=== PATIENT | female | born 1950 | race Caucasian/White ===

== ENCOUNTER 2020-11-06 15:14 | Emergency (ER) | payer MEDICAID, MEDICARE, OTHER ==
[~2020-11-06] VITALS: Ht 167.6 cm; Wt 68.2 kg
[~2020-11-06 15:14] MED LIST: GABA-338 PO; LANTUS SQ; LEVA15HF4 IH; ZES10T PO
[2020-11-06] MEDS ORDERED: normal saline 1000ML IV soln IV ONE (15:35)
[2020-11-06] MEDS ORDERED: CefTRIAXone 2gm/D5W 50ml BAG 50 ML IV ONE (15:35)
[2020-11-06] MEDS ORDERED: acetaminophen 325mg tablet PO ONE (15:50)
--- NOTE | 2020-11-06 16:05 | NUR ---
javy (son) [phone] called and said he would be the ride when pt is ready to go home
[2020-11-06 16:08] LABS: ALANINE AMINOTRANSFERASE 34 U/L (12-78); ALBUMIN/GLOBULIN RATIO 0.6 (1.1-1.5); ALKALINE PHOSPHATASE 128 IU/L (46-116); ANION GAP 13 (8-16); ASPARTATE AMINO TRANSFERASE 40 U/L (10-37); BILIRUBIN,TOTAL 1.5 MG/DL (0.1-1.0); BLOOD UREA NITROGEN 12 MG/DL (7-18); BUN/CREATININE RATIO 16.4 (6.6-38.0); CHLORIDE 93 MMOL/L (99-107); CREATININE 0.73 MG/DL (0.40-0.90); GLUCOSE 322 MG/DL (70-104); MAGNESIUM 1.2 MG/DL (1.5-2.4); POTASSIUM 3.5 MMOL/L (3.5-5.1); SODIUM 130 MMOL/L (135-145); TOTAL CARBON DIOXIDE 24.3 MMOL/L (24-32); TOTAL PROTEIN 8.2 G/DL (6.4-8.2); eGFR 79 ML/MIN
[2020-11-06 16:31] LABS: CLARITY,URINE SLIGHTLY CLOUDY (Clear); COLOR,URINE YELLOW (Yellow); GLUCOSE, URINE >=1000 mg/dl (Neg); KETONES,URINE 15 mg/dl (Neg); LEUKOCYTE ESTERASE ,URINE NEGATIVE (Neg); NITRITES, URINE NEGATIVE (Neg); OCCULT BLOOD,URINE NEGATIVE (Neg); PH,URINE 5.5 (4.8-8.0); PROTEIN,URINE NEGATIVE (Neg); UA COLLECTION TYPE STRAIGHT CATH; UROBILINOGEN,URINE 0.2 E.U/dL (0.2-1.0)
[2020-11-06 16:38] LABS: FINE GRANULAR CAST 0-3 /LPF (NEGATIVE); MUCUS STRANDS FEW /LPF (Neg); SQUAMOUS EPITHELIAL CELL,UR FEW /LPF (FEW)
[2020-11-06 16:39] LABS: BACTERIA,URINE FEW /HPF (Neg); RBC,URINE 0-2 /HPF (0-2); WBC,URINE 0-4 /HPF (0-4)
[2020-11-06 16:46] LABS: BASOPHILS % (AUTO) 0.1 % (0-1); EOSINOPHILS % (AUTO) 0.4 % (0-6); HEMATOCRIT 32.6 % (35.0-45.0); HEMOGLOBIN 10.8 g/dl (12.0-16.0); LYMPHOCYTES # (AUTO) 0.6 X10'3 (1.1-4.8); LYMPHOCYTES % (AUTO) 11.4 % (21-51); MEAN CORPUSCULAR HEMOGLOBIN 28.4 PG (27.0-31.0); MONOCYTES # (AUTO) 0.3 X10'3 (0-0.9); MONOCYTES % (AUTO) 6.7 % (2-12); NEUTROPHILS % (AUTO) 81.4 % (42-75); PLATELET COUNT 59 X10'3 (140-440); RED BLOOD COUNT 3.79 X10'6 (4.20-5.60); WHITE BLOOD COUNT 4.9 X10'3 (4.5-11.0)
[2020-11-06 19:45] VITALS: BP 112/50
== END 2020-11-06 20:21 | disposition home or self-care (01) ==
LOC: ER 15:17
DX: E11.65 Type 2 diabetes mellitus with hyperglycemia (principal); R53.1 Weakness; R50.9 Fever, unspecified; G89.29 Other chronic pain; I10 Essential (primary) hypertension; M19.90 Unspecified osteoarthritis, unspecified site; Z98.51 Tubal ligation status; Z72.89 Other problems related to lifestyle; Z56.0 Unemployment, unspecified; Z59.0 Homelessness; Z79.4 Long term (current) use of insulin; Z79.899 Other long term (current) drug therapy
CPT/HCPCS: 36415; 71045; 80053; 81001; 82948; 83605; 83735; 84145; 85025; 87040; 93005; 96361; 96365; 99285; J0696; J7030

== ENCOUNTER 2021-08-27 14:08 | Emergency (ER) | payer OTHER, MEDICAID ==
[~2021-08-27] VITALS: Ht 167.6 cm; Wt 80.7 kg
[2021-08-27 14:34] LABS: BASOPHILS % (AUTO) 0.3 % (0-1); EOSINOPHILS % (AUTO) 0.9 % (0-6); HEMATOCRIT 25.4 % (35.0-45.0); HEMOGLOBIN 8.1 g/dl (12.0-16.0); LYMPHOCYTES # (AUTO) 0.8 X10'3 (1.1-4.8); LYMPHOCYTES % (AUTO) 25.4 % (21-51); MEAN CORPUSCULAR HEMOGLOBIN 22.9 PG (27.0-31.0); MEAN CORPUSCULAR HGB CONC 31.7 g/dL (33.0-36.5); MEAN CORPUSCULAR VOLUME 72.2 FL (78-98); MEAN PLATELET VOLUME 8.6 FL (7.4-10.4); MONOCYTES # (AUTO) 0.4 X10'3 (0-0.9); MONOCYTES % (AUTO) 12.9 % (2-12); NEUTROPHILS # (AUTO) 1.9 X10'3 (1.8-7.7); NEUTROPHILS % (AUTO) 60.5 % (42-75); PLATELET COUNT 170 X10'3 (140-440); RED BLOOD COUNT 3.52 X10'6 (4.20-5.60); RED CELL DISTRIBUTION WIDTH 23.7 % (11.5-14.5); WHITE BLOOD COUNT 3.1 X10'3 (4.5-11.0)
[2021-08-27 14:48] LABS: ALANINE AMINOTRANSFERASE 22 U/L (12-78); ALBUMIN 2.3 G/DL (3.4-5.0); ALBUMIN/GLOBULIN RATIO 0.4 (1.1-1.5); ALKALINE PHOSPHATASE 145 IU/L (46-116); AMYLASE 76 U/L (25-115); ANION GAP 8 (8-16); ASPARTATE AMINO TRANSFERASE 27 U/L (10-37); BILIRUBIN,TOTAL 0.5 MG/DL (0.1-1.0); BLOOD UREA NITROGEN 16 MG/DL (7-18); BUN/CREATININE RATIO 21.1 (6.6-38.0); CALCIUM 7.8 MG/DL (8.5-10.1); CHLORIDE 105 MMOL/L (99-107); CREATININE 0.76 MG/DL (0.40-0.90); GLUCOSE 200 MG/DL (70-104); LIPASE 302 U/L (73-393); POTASSIUM 3.7 MMOL/L (3.5-5.1); SODIUM 135 MMOL/L (135-145); TOTAL CARBON DIOXIDE 22.4 MMOL/L (24-32); TOTAL PROTEIN 7.9 G/DL (6.4-8.2); eGFR 75 ML/MIN
[2021-08-27 15:04] LABS: ANISOCYTOSIS 3+; PLATELET ESTIMATE NORMAL
[2021-08-27 15:05] LABS: ELLIPTOCYTES FEW; HYPOCHROMASIA 2+; MICROCYTOSIS 1+; POLYCHROMASIA FEW; SCHISTOCYTES FEW
[2021-08-27] MEDS ORDERED: LIDOcaine 1% W/epiNEPHrine 1:100,000 20ml vial SQ ONE (21:05)
[2021-08-27 22:02] VITALS: BP 144/85
== END 2021-08-27 22:05 | disposition home or self-care (01) ==
LOC: ER 14:09
DX: K70.31 Alcoholic cirrhosis of liver with ascites (principal); Z79.4 Long term (current) use of insulin; Z79.899 Other long term (current) drug therapy; I10 Essential (primary) hypertension; E11.9 Type 2 diabetes mellitus without complications; M19.90 Unspecified osteoarthritis, unspecified site; Z98.51 Tubal ligation status; Z72.89 Other problems related to lifestyle; Z56.0 Unemployment, unspecified
CPT/HCPCS: 36415; 80053; 82150; 83690; 85008; 85025; 99283

== ENCOUNTER 2021-09-04 07:14 | Day surgery (SDC) | payer OTHER, MEDICAID ==
[2021-09-04] VITALS (8 sets, daily range): BP systolic 106–147; BP diastolic 49–77
[~2021-09-04] VITALS: Ht 167.6 cm; Wt 87.0 kg
[2021-09-04] MEDS ORDERED: LIDOcaine 1% 30ml preserv. free vial SQ STA (07:25)
[2021-09-04] MEDS ORDERED: albumin 25% 100mL bottle x 1 IV PRN (07:35)
[2021-09-04] MEDS ORDERED: METO-395 PO (07:42)
[2021-09-04] MEDS ORDERED: PANT40TA54 PO (07:42)
[2021-09-04] MEDS ORDERED: MAGN400T56 PO (07:42)
[2021-09-04] MEDS ORDERED: SPIR25TA5 PO (07:42)
[2021-09-04] MEDS ORDERED: POTA-82 PO (07:42)
[2021-09-04] MEDS ORDERED: INSU100V9 SQ (07:45)
[2021-09-04] MEDS ORDERED: HUM7525 SQ (07:47)
--- NOTE | 2021-09-04 09:20 | NUR ---
Small amount of blood returned on paracentesis cath, Dayana CHATTERJEE aware and at bedside. Cath DC intact. Dressing applied by Dayana Gerard RN
== END 2021-09-04 10:10 | disposition home or self-care (01) ==
LOC: SSTAY O 07:14
PROVIDERS: ATTEND Radiology Vascular & Interventional Radiology
DX: K70.31 Alcoholic cirrhosis of liver with ascites (principal); E11.9 Type 2 diabetes mellitus without complications; I10 Essential (primary) hypertension; J45.909 Unspecified asthma, uncomplicated; Z86.16 Personal history of COVID-19; Z86.19 Personal history of other infectious and parasitic diseases; Z79.4 Long term (current) use of insulin; Z79.899 Other long term (current) drug therapy; Z88.5 Allergy status to narcotic agent
CPT/HCPCS: 49083; J3490; P9047

== ENCOUNTER 2021-09-10 11:39 | Emergency (ER) | payer OTHER, MEDICAID ==
[~2021-09-10] VITALS: Ht 167.6 cm; Wt 61.8 kg
[~2021-09-10 11:39] MED LIST changes: -GABA-338 PO; +HUM7525 SQ; +INSU100V9 SQ; -LANTUS SQ; -LEVA15HF4 IH; +MAGN400T56 PO; +METO-395 PO; +PANT40TA54 PO; +POTA-82 PO; +SPIR25TA5 PO; -ZES10T PO
[2021-09-10 11:46] VITALS: BP 118/75
--- NOTE | 2021-09-10 13:21 | NUR ---
PT AMBULATORY TO BATHROOM WITH RN ASSIST.
[2021-09-10 14:44] LABS: HEMOGLOBIN 8.3 g/dl (12.0-16.0); LYMPHOCYTES # (AUTO) 0.9 X10'3 (1.1-4.8); MEAN PLATELET VOLUME 9.2 FL (7.4-10.4); WHITE BLOOD COUNT 2.9 X10'3 (4.5-11.0)
[2021-09-10 14:46] LABS: BASOPHILS % (AUTO) 0.2 % (0-1); EOSINOPHILS % (AUTO) 1.3 % (0-6); HEMATOCRIT 26.9 % (35.0-45.0); LYMPHOCYTES % (AUTO) 29.4 % (21-51); MONOCYTES # (AUTO) 0.3 X10'3 (0-0.9); MONOCYTES % (AUTO) 11.9 % (2-12); NEUTROPHILS # (AUTO) 1.7 X10'3 (1.8-7.7); NEUTROPHILS % (AUTO) 57.2 % (42-75); RED BLOOD COUNT 3.96 X10'6 (4.20-5.60); RED CELL DISTRIBUTION WIDTH 24.8 % (11.5-14.5)
[2021-09-10 15:05] LABS: PLATELET COUNT 101 X10'3 (140-440)
[2021-09-10 15:11] LABS: ANISOCYTOSIS 3+; HYPOCHROMASIA 2+; LARGE PLATELETS FEW; MICROCYTOSIS 2+; PLATELET ESTIMATE DECREASED; TOTAL CELLS COUNTED 100
[2021-09-10 15:12] LABS: ELLIPTOCYTES FEW
[2021-09-10 15:13] LABS: ALANINE AMINOTRANSFERASE 15 U/L (12-78); ALBUMIN 2.3 G/DL (3.4-5.0); ALBUMIN/GLOBULIN RATIO 0.4 (1.1-1.5); ALKALINE PHOSPHATASE 135 IU/L (46-116); ANION GAP 5 (8-16); ASPARTATE AMINO TRANSFERASE 17 U/L (10-37); BILIRUBIN,TOTAL 0.5 MG/DL (0.1-1.0); BLOOD UREA NITROGEN 14 MG/DL (7-18); BUN/CREATININE RATIO 22.2 (6.6-38.0); CALCIUM 7.8 MG/DL (8.5-10.1); CHLORIDE 102 MMOL/L (99-107); CREATININE 0.63 MG/DL (0.40-0.90); GLUCOSE 377 MG/DL (70-104); POTASSIUM 4.9 MMOL/L (3.5-5.1); SODIUM 132 MMOL/L (135-145); TOTAL CARBON DIOXIDE 24.6 MMOL/L (24-32); TOTAL PROTEIN 8.3 G/DL (6.4-8.2); eGFR > 90 ML/MIN
== END 2021-09-10 15:57 | disposition home or self-care (01) ==
LOC: ER 11:39
DX: D64.9 Anemia, unspecified (principal); K70.30 Alcoholic cirrhosis of liver without ascites; E11.65 Type 2 diabetes mellitus with hyperglycemia; I10 Essential (primary) hypertension; J45.909 Unspecified asthma, uncomplicated; M19.90 Unspecified osteoarthritis, unspecified site; F15.90 Other stimulant use, unspecified, uncomplicated; Z98.51 Tubal ligation status; Z86.19 Personal history of other infectious and parasitic diseases; Z72.89 Other problems related to lifestyle; Z56.0 Unemployment, unspecified; Z79.4 Long term (current) use of insulin; Z79.899 Other long term (current) drug therapy
CPT/HCPCS: 36415; 80053; 85007; 85025; 86885; 86900; 86901; 93005; 99284

== ENCOUNTER 2021-09-20 06:09 | Day surgery (SDC) | payer OTHER, MEDICAID ==
[2021-09-20] VITALS (13 sets, daily range): BP systolic 101–130; BP diastolic 43–69
[~2021-09-20] VITALS: Ht 167.6 cm; Wt 84.9 kg
[2021-09-20] MEDS ORDERED: LIDOcaine 1% 30ml preserv. free vial IJ STA (06:27)
[2021-09-20] MEDS ORDERED: ALBU8.5H17 INH (08:01)
[2021-09-20] MEDS ORDERED: MELO7.5T12 PO (08:01)
[2021-09-20] MEDS: albumin 25% 100mL bottle x 1 IV PRN ×2 (08:35→10:20)
== END 2021-09-20 10:40 | disposition home or self-care (01) ==
LOC: SSTAY O 06:09
PROVIDERS: ATTEND Radiology Vascular & Interventional Radiology
DX: K70.31 Alcoholic cirrhosis of liver with ascites (principal); E11.9 Type 2 diabetes mellitus without complications; J45.909 Unspecified asthma, uncomplicated; I10 Essential (primary) hypertension; Z86.16 Personal history of COVID-19; Z98.51 Tubal ligation status; F15.90 Other stimulant use, unspecified, uncomplicated; Z72.89 Other problems related to lifestyle; Z79.899 Other long term (current) drug therapy
CPT/HCPCS: 49083; J3490; P9047

== ENCOUNTER 2021-09-28 08:53 | Day surgery (SDC) | payer OTHER, MEDICAID ==
[2021-09-28] VITALS (13 sets, daily range): BP systolic 100–131; BP diastolic 51–69
[~2021-09-28] VITALS: Ht 167.6 cm; Wt 81.9 kg
[~2021-09-28 08:53] MED LIST changes: +ALBU8.5H17 INH; +LIDOcaine 1%/PF 5ML 10 MG/ML VIAL IJ ONE; -MAGN400T56 PO; +MELO7.5T12 PO
[2021-09-28] MEDS ORDERED: OXYC-658 PO (09:16)
[2021-09-28] MEDS: albumin 25% 100mL bottle x 1 IV PRN (12:13)
== END 2021-09-28 12:20 | disposition home or self-care (01) ==
LOC: SSTAY O 08:53
PROVIDERS: ATTEND Preventive Medicine Aerospace Medicine
DX: K70.31 Alcoholic cirrhosis of liver with ascites (principal); I10 Essential (primary) hypertension; J45.909 Unspecified asthma, uncomplicated; E11.9 Type 2 diabetes mellitus without complications; Z86.19 Personal history of other infectious and parasitic diseases; Z86.16 Personal history of COVID-19; Z98.51 Tubal ligation status; Z72.89 Other problems related to lifestyle; F15.90 Other stimulant use, unspecified, uncomplicated; Z79.899 Other long term (current) drug therapy
CPT/HCPCS: 49083; J3490; P9047

== ENCOUNTER 2021-10-08 08:13 | Day surgery (SDC) | payer OTHER, MEDICAID ==
[~2021-10-08] VITALS: Ht 167.6 cm; Wt 80.3 kg
[2021-10-08] VITALS (8 sets, daily range): BP systolic 118–146; BP diastolic 59–79
[~2021-10-08 08:13] MED LIST changes: -LIDOcaine 1%/PF 5ML 10 MG/ML VIAL IJ ONE; -MELO7.5T12 PO; +OXYC-658 PO; -POTA-82 PO
[2021-10-08] MEDS ORDERED: LIDOcaine 1%/PF 5ML 10 MG/ML VIAL IJ ONE (08:35)
[2021-10-08] MEDS: albumin 25% 100mL bottle x 1 IV PRN ×2 (10:32→10:34)
== END 2021-10-08 12:03 | disposition home or self-care (01) ==
LOC: SSTAY O 08:13
PROVIDERS: ATTEND Preventive Medicine Aerospace Medicine
DX: K70.31 Alcoholic cirrhosis of liver with ascites (principal); I10 Essential (primary) hypertension; E11.9 Type 2 diabetes mellitus without complications; J45.909 Unspecified asthma, uncomplicated; Z86.16 Personal history of COVID-19; Z86.19 Personal history of other infectious and parasitic diseases; Z98.51 Tubal ligation status; F15.90 Other stimulant use, unspecified, uncomplicated; Z72.89 Other problems related to lifestyle; Z79.4 Long term (current) use of insulin; Z79.899 Other long term (current) drug therapy
CPT/HCPCS: 49083; 82948; J3490; P9047

== ENCOUNTER 2021-10-15 07:13 | Day surgery (SDC) | payer OTHER, MEDICAID ==
[~2021-10-15] VITALS: Ht 167.6 cm; Wt 75.9 kg
[2021-10-15] VITALS (10 sets, daily range): BP systolic 97–147; BP diastolic 57–77
[2021-10-15] MEDS ORDERED: LIDOcaine 1%/PF 5ML 10 MG/ML VIAL SQ ONE (07:30)
[2021-10-15] MEDS: albumin 25% 100mL bottle x 1 IV PRN ×2 (08:42→09:40)
== END 2021-10-15 10:55 | disposition home or self-care (01) ==
LOC: SSTAY O 07:13
PROVIDERS: ATTEND Preventive Medicine Aerospace Medicine
DX: K70.31 Alcoholic cirrhosis of liver with ascites (principal); E11.9 Type 2 diabetes mellitus without complications; I10 Essential (primary) hypertension; J45.909 Unspecified asthma, uncomplicated; Z86.16 Personal history of COVID-19; Z86.19 Personal history of other infectious and parasitic diseases; Z98.51 Tubal ligation status; F15.90 Other stimulant use, unspecified, uncomplicated; Z72.89 Other problems related to lifestyle
CPT/HCPCS: 49083; J3490; P9047

== ENCOUNTER 2021-10-19 09:38 | Emergency (ER) | payer OTHER, MEDICAID ==
[~2021-10-19] VITALS: Ht 167.6 cm; Wt 76.0 kg
[2021-10-19 10:47] VITALS: BP 130/81
== END 2021-10-19 10:48 | disposition home or self-care (01) ==
LOC: ER 09:40
DX: R10.84 Generalized abdominal pain (principal); K70.31 Alcoholic cirrhosis of liver with ascites; I10 Essential (primary) hypertension; J45.909 Unspecified asthma, uncomplicated; E11.9 Type 2 diabetes mellitus without complications; M19.90 Unspecified osteoarthritis, unspecified site; F15.90 Other stimulant use, unspecified, uncomplicated; Z86.19 Personal history of other infectious and parasitic diseases; Z98.51 Tubal ligation status; Z56.0 Unemployment, unspecified; Z79.4 Long term (current) use of insulin; Z79.899 Other long term (current) drug therapy
CPT/HCPCS: 99281; 99283

== ENCOUNTER 2021-10-22 08:14 | Day surgery (SDC) | payer OTHER, MEDICAID ==
[2021-10-22] VITALS (9 sets, daily range): BP systolic 114–134; BP diastolic 47–69
[~2021-10-22] VITALS: Ht 167.6 cm; Wt 70.4 kg
[2021-10-22] MEDS ORDERED: LIDOcaine 1%/PF 5ML 10 MG/ML VIAL SQ ONE (08:35)
[2021-10-22] MEDS ORDERED: albumin 25% 100mL bottle x 1 IV PRN (08:40)
[2021-10-22] MEDS ORDERED: normal saline 1000ml 1,000 ML IV PRN (08:45)
== END 2021-10-22 12:00 | disposition home or self-care (01) ==
LOC: SSTAY O 08:14
PROVIDERS: ATTEND Radiology Diagnostic Radiology
DX: R18.8 Other ascites (principal); R14.0 Abdominal distension (gaseous); J45.909 Unspecified asthma, uncomplicated; I10 Essential (primary) hypertension; E11.9 Type 2 diabetes mellitus without complications; Z86.19 Personal history of other infectious and parasitic diseases; Z86.16 Personal history of COVID-19; F15.90 Other stimulant use, unspecified, uncomplicated; Z72.89 Other problems related to lifestyle; Z98.51 Tubal ligation status
CPT/HCPCS: 49083; J3490; P9047

== ENCOUNTER 2021-10-29 06:30 | Day surgery (SDC) | payer OTHER, MEDICAID ==
[~2021-10-29] VITALS: Ht 177.8 cm; Wt 70.0 kg
[2021-10-29] VITALS (9 sets, daily range): BP systolic 104–128; BP diastolic 59–74
[2021-10-29] MEDS ORDERED: albumin 25% 100mL bottle x 1 IV PRN (06:55)
[2021-10-29] MEDS ORDERED: LIDOcaine 1%/PF 5ML 10 MG/ML VIAL SQ ONE (08:05)
[2021-10-29] MEDS ORDERED: LIDOcaine 1% (10mg/ml)w/preservative inj. 20ml MDV ONE (08:47)
[2021-10-29] MEDS ORDERED: midazolam 1 mg/ML 2ml injection ONE (09:36)
[2021-10-29] MEDS ORDERED: fentaNYL/PF 50MCG/1 ML 2ML syringe ONE (09:36)
[2021-10-29] MEDS ORDERED: albumin (human) 25% 100 ML IV solution IV ONE (10:00)
== END 2021-10-29 11:25 | disposition home or self-care (01) ==
LOC: SSTAY O 06:30
PROVIDERS: ATTEND Radiology Vascular & Interventional Radiology
DX: K70.31 Alcoholic cirrhosis of liver with ascites (principal); Z20.822 Contact with and (suspected) exposure to COVID-19; J45.909 Unspecified asthma, uncomplicated; I10 Essential (primary) hypertension; E11.9 Type 2 diabetes mellitus without complications; Z86.19 Personal history of other infectious and parasitic diseases; Z86.16 Personal history of COVID-19; Z72.89 Other problems related to lifestyle; F15.90 Other stimulant use, unspecified, uncomplicated; Z98.51 Tubal ligation status; Z79.899 Other long term (current) drug therapy; Z79.4 Long term (current) use of insulin
CPT/HCPCS: 49418; 87635; 99152; 99153; C9803; J2250; J3010; J3490; P9047; 49083